=== PATIENT | male | born 1945 | race American Indian/Alaskan Native ===

== ENCOUNTER 2019-05-22 11:23 | Outpatient (CLI) | payer OTHER ==
[2019-05-22 12:42] LABS: Blood Urea Nitrogen 15 mg/dL (9-20)
--- NOTE | 2019-05-22 14:08 | Magnetic Resonance Report ---
MR ABDOMEN WITH AND WITHOUT CONTRAST HISTORY: Pancreatic mass. TECHNIQUE: Multisequence, multiplanar MRI before and after 16 cc of MultiHance intravenously. COMPARISON: None at this facility. FINDINGS: Many of the sequences are limited by breathing motion artifact. The pancreatic parenchyma appears nor mal size and signal on all sequences. No abnormal enhancement is demonstrated following IV gadolinium . No pancreatic mass, pseudocyst or inflammatory changes are appreciated. The liver, biliary system, spleen, kidneys and adrenal glands are unremarkable. The vascular structures are patent and unremarkable. No evidence for adenopathy, ascites or inflammat ory changes. There is no obvious bowel obstruction. There does appear to be moderate fluid in the cecum which is o f uncertain significance. Normal bone marrow signal in the visualized osseous structures. IMPRESSION: Slightly limited exam by breathing motion artifact. No pancreatic mass is detected on MRI with and without contrast. Signer Name: Matheus Berrios Jr, MD Signed: 05/22/2019 2:04 PM Workstation Name: [id number]
== END 2019-05-22 11:24 | disposition home or self-care (01) ==
LOC: MRI 11:23
PROVIDERS: ATTEND Family Medicine
DX: R19.07 Generalized intra-abdominal and pelvic swelling, mass and lump (principal)
CPT/HCPCS: 36415; 74183; 82565; 84520; A9577

== ENCOUNTER 2021-04-03 09:36 | Outpatient (CLI) | payer OTHER ==
--- NOTE | 2021-04-03 11:31 | Mammography Report ---
BILATERAL DIGITAL DIAGNOSTIC MAMMOGRAM WITH CAD CONVENTIONAL, 04/03/2021 LEFT LIMITED BREAST ULTRASOUND CLINICAL INFORMATION / INDICATION: Patient presents for evaluation of an area of palpable concern in the left breast. Patient states that the area has improved following a course of antibiotics. TECHNIQUE: Digital bilateral mammographic imaging was performed. Limited ultrasound was performed. Th is examination was interpreted with the benefit of Computer-Aided Detection (CAD) analysis. COMPARISON: None FINDINGS: Breast Density: There are scattered areas of fibroglandular density. MAMMOGRAPHIC FINDINGS: Corresponding with the site of palpable concern in the subareolar left breast, there is a small to moderate amount of asymmetric nodular tissue most suggestive of nodular gynecoma stia. Otherwise, no dominant mass, suspicious calcifications, or architectural distortion in either b reast. ULTRASOUND FINDINGS: Targeted ultrasound evaluation was performed of the area of interest. Targeted ultrasound of the area of concern in the subareolar left breast is unremarkable. No suspicious cysti c or solid lesion identified. IMPRESSION: 1. There is asymmetric tissue in the subareolar left breast corresponding with the site of palpable c oncern, most likely reflecting asymmetric gynecomastia, though clinical correlation is recommended. Follow up recommendation: No recall. BI-RADS Category 2: BENIGN. A "normal" or negative report should not discourage follow up or biopsy of a clinically significant f inding. A written summary of these findings will be mailed to the patient. The patient will be entered into a mammography reporting system which will generate a reminder letter for the patient's next appointmen t at the appropriate interval. According to the [employer], yearly mammograms are recommended starting at age 40 and continuing as long as a woman is in good health. Breast MRI is recommended for women with an natalia roximately 20-25% or greater lifetime risk of breast cancer, including women with a strong family his tory of breast or ovarian cancer and women who have been treated for Hodgkin's disease. Signer Name: Colleen Howard MD Signed: 04/03/2021 11:27 AM Workstation Name: [id number]
== END 2021-04-03 09:37 | disposition home or self-care (01) ==
LOC: MAMMO 09:36
PROVIDERS: ATTEND Family Medicine
DX: R92.8 Other abnormal and inconclusive findings on diagnostic imaging of breast (principal)
CPT/HCPCS: 77066